=== PATIENT | female | born 1985 | race Caucasian/White ===

== ENCOUNTER 2022-10-17 07:38 | Day surgery (SDC) | payer OTHER ==
[~2022-10-17] VITALS: Ht 170.2 cm; Wt 87.1 kg
[~2022-10-17 07:38] MED LIST: CYAN1000VL IM; NYQUIL; SYNT112T2 PO
[2022-10-17] MEDS ORDERED: LR 1,000 ML IV SCH ×3 (08:15→10:50)
[2022-10-17] MEDS ORDERED: OXYMETAZOLINE 0.05% NASAL SPRAY (AFRIN) As Ordered ONE (09:05)
[2022-10-17] MEDS ORDERED: BUPIVACAINE/EPIN 0.5% 30ML VIAL As Ordered ONE (09:05)
[2022-10-17] MEDS ORDERED: ROCURONIUM BROMIDE 50MG/5ML VIAL As Ordered ONE (09:33)
[2022-10-17] MEDS ORDERED: ACETAMINOPHEN 1000MG 100ML IV BAG As Ordered ONE (09:33)
[2022-10-17] MEDS ORDERED: propofoL 200 MG/20 ML VIAL As Ordered ONE ×2 (09:33→10:11)
[2022-10-17] MEDS ORDERED: MIDAZOLAM INJ 2MG/2ML VIAL As Ordered ONE (09:33)
[2022-10-17] MEDS ORDERED: fentaNYL 100 MCG/2 ML INJECTION As Ordered ONE (09:33)
[2022-10-17] MEDS ORDERED: ONDANSETRON 4MG 2ML VIAL As Ordered ONE (09:33)
[2022-10-17] MEDS ORDERED: SUGAMMADEX SODIUM 500 MG/5 ML VIAL (BRIDION) As Ordered ONE (09:41)
[2022-10-17] MEDS ORDERED: fentaNYL 100 MCG/2 ML INJECTION IV PRN (10:10)
[2022-10-17] MEDS ORDERED: ONDANSETRON 4MG 2ML VIAL IV PRN ×2 (10:10→10:50)
[2022-10-17] MEDS ORDERED: METOCLOPRAMIDE INJ 10MG/2ML VIAL IV PRN (10:10)
[2022-10-17] MEDS: HYDROMORPHONE HCL 0.5 MG/ 0.5 ML SYRINGE IV PRN ×2 (10:22→10:35)
[2022-10-17] MEDS: oxyCODONE 5MG TAB PO PRN ×2 (10:23→11:27)
[2022-10-17] MEDS ORDERED: HYDROcodone/APAP LIQUID 7.5-325MG 15ML UDC (LORTAB ELIXIR) PO PRN (10:50)
[2022-10-17 11:45] VITALS: BP 131/74
== END 2022-10-17 12:10 | disposition home or self-care (01) ==
LOC: M SDC 07:38
PROVIDERS: ATTEND Otolaryngology
DX: J35.01 Chronic tonsillitis (principal); E03.9 Hypothyroidism, unspecified; Z79.899 Other long term (current) drug therapy
CPT/HCPCS: 42826; 81025; 88302; J0131; J1100; J1170; J2250; J2405; J3010; S0020